=== PATIENT | female | born 1970 | race Caucasian/White ===

== ENCOUNTER 2019-12-31 07:52 | Outpatient (CLI) | payer OTHER, SELFPAY ==
--- NOTE | ~2019-12-31 | MM_ITS ---
EXAMINATION: MM screening jayna BI w aiyana HISTORY: Screening mammogram, family history of breast cancer in her mother. TECHNIQUE: Craniocaudal and mediolateral oblique 3-D tomosynthesis images were obtained and synthetic 2-D images were generated. CAD analysis was submitted and interpreted. COMPARISON: 12/26/2018, 12/14/1917, 12/13/2016 BREAST PARENCHYMAL COMPOSITION: There are scattered areas of fibroglandular density. FINDINGS: There is no evidence of suspicious mass, calcification, or architectural distortion to sugg est malignancy in either breast. There has been no suspicious interval change. IMPRESSION: 1. No mammographic evidence of malignancy. 2. Recommend routine screening mammography in one year. BI-RADS Category 1: Negative Reviewed, dictated and finalized at location A. WIRE FABRIC MACHINE OPERATOR
== END 2019-12-31 07:53 | disposition home or self-care (01) ==
LOC: CHSIMG 07:57
PROVIDERS: PCP Internal Medicine; Visit Provider Obstetrics & Gynecology
DX: Z12.31 Encounter for screening mammogram for malignant neoplasm of breast (principal)
CPT/HCPCS: 77063; 77067

== ENCOUNTER 2021-01-02 07:55 | Outpatient (CLI) | payer BC, SELFPAY ==
--- NOTE | ~2021-01-02 | MM_ITS ---
EXAMINATION: MM screening jayna BI w aiyana HISTORY: Screening mammogram TECHNIQUE: Craniocaudal and mediolateral oblique 3-D tomosynthesis images were obtained and synthetic 2-D images were generated. CAD analysis was submitted and interpreted. COMPARISON: December 31, 2019, December 26, 2018, November 20182017 bilateral digital screening mammog amrit examinations BREAST PARENCHYMAL COMPOSITION: There are scattered areas of fibroglandular density. FINDINGS: There is no evidence of suspicious mass, calcification, or architectural distortion to sugg est malignancy in either breast. There has been no suspicious interval change. IMPRESSION: 1. No mammographic evidence of malignancy. 2. Recommend routine screening mammography in one year. BI-RADS Category 1: Negative Reviewed, dictated and finalized at location A. TIC MACHINE TENDER PRODUCTION
== END 2021-01-02 07:56 | disposition home or self-care (01) ==
LOC: CHSIMG 08:00
PROVIDERS: PCP Internal Medicine; Visit Provider Obstetrics & Gynecology
DX: Z12.31 Encounter for screening mammogram for malignant neoplasm of breast (principal)
CPT/HCPCS: 77063; 77067

== ENCOUNTER 2021-01-03 15:03 | Outpatient (CLI) | payer BC, SELFPAY ==
--- NOTE | ~2021-01-03 | US_ITS ---
EXAMINATION: US venous doppler UE RT DATE: 01/03/2021 15:51 INDICATION: Swelling and prominent veins in the right upper limb TECHNIQUE: Grayscale images without and with compression and Doppler images of the right upper extrem ity veins were obtained. COMPARISON: None. FINDINGS: The right internal jugular vein, subclavian vein, axillary vein, brachial vein, basilic vein, cephali c vein, radial vein, and ulnar vein are patent. IMPRESSION: 1. Patent right upper extremity veins. No evidence of venous thrombosis. Reviewed, dictated and finalized at location A. STRIAL PIPEFITTER JOURNEYMAN
== END 2021-01-03 15:04 | disposition home or self-care (01) ==
LOC: CHSIMG 15:05
PROVIDERS: PCP Internal Medicine; Visit Provider Internal Medicine
DX: M79.89 Other specified soft tissue disorders (principal)
CPT/HCPCS: 93971

== ENCOUNTER 2021-01-06 08:30 | Outpatient (CLI) | payer BC, SELFPAY ==
--- NOTE | ~2021-01-06 | CT_ITS ---
EXAMINATION: CT diagnostic chest w con DATE: 01/06/2021 09:50 INDICATION: Superior vena cava obstruction TECHNIQUE: Transaxial computed tomographic images of the chest were obtained after the administration of 75 cc of Omnipaque 350 intravenous contrast. The dose-length product (DLP) was 174.55 mGy-cm. Ite rative reconstruction was used. COMPARISON: None FINDINGS: There is superior vena cava is patent. Streak artifact from dense SVC contrast limits evalu ation for partial intraluminal filling defects although none are definitely identified. There is mild dependent atelectasis. No focal airspace opacities are identified. There is no pleural effusion or p neumothorax. No pathologically enlarged thoracic lymph nodes are identified. The heart size is normal . IMPRESSION: 1. No evidence of superior vena cava obstruction. Reviewed, dictated and finalized at location A. NICAL WRITING LEAD/MGR
== END 2021-01-06 08:31 | disposition home or self-care (01) ==
LOC: CHSIMG 08:31
PROVIDERS: PCP Internal Medicine; Visit Provider Internal Medicine
DX: I87.1 Compression of vein (principal)
CPT/HCPCS: 71260; Q9967

== ENCOUNTER 2022-03-09 08:28 | Outpatient (CLI) | payer BC, SELFPAY ==
--- NOTE | ~2022-03-09 | MM_ITS ---
EXAMINATION: MM screening [facility] BI w aiyana HISTORY: Screening TECHNIQUE: Craniocaudal and mediolateral oblique 3-D tomosynthesis images were obtained and synthetic 2-D images were generated. CAD analysis was submitted and interpreted. COMPARISON: Comparison to multiple prior studies sequentially, with oldest reviewed study dated 10/26. BREAST PARENCHYMAL COMPOSITION: There are scattered areas of fibroglandular density. FINDINGS: There is no evidence of suspicious mass, calcification, or architectural distortion to sugg est malignancy in either breast. There has been no suspicious interval change. IMPRESSION: 1. No mammographic evidence of malignancy. 2. Recommend routine screening mammography in one year. BI-RADS Category 1: Negative Reviewed, dictated and finalized at location A.
== END 2022-03-09 08:29 | disposition home or self-care (01) ==
LOC: CHSIMG 08:30
PROVIDERS: PCP Internal Medicine; Visit Provider Obstetrics & Gynecology
DX: Z12.31 Encounter for screening mammogram for malignant neoplasm of breast (principal)
CPT/HCPCS: 77063; 77067

== ENCOUNTER 2023-03-11 07:51 | Outpatient (CLI) | payer BC, SELFPAY ==
--- NOTE | ~2023-03-11 | MM_ITS ---
EXAMINATION: MM screening jayna BI w aiyana HISTORY: Screening mammogram TECHNIQUE: Craniocaudal and mediolateral oblique 3-D tomosynthesis images were obtained and synthetic 2-D images were generated. CAD analysis was submitted and interpreted. COMPARISON: March 09, 2022, January 02, 2021, December 31, 2019 bilateral screening mammogram examinat ions BREAST PARENCHYMAL COMPOSITION: There are scattered areas of fibroglandular density. FINDINGS: There is no evidence of suspicious mass, calcification, or architectural distortion to sugg est malignancy in either breast. There has been no suspicious interval change. IMPRESSION: 1. No mammographic evidence of malignancy. 2. Recommend routine screening mammography in one year. BI-RADS Category 1: Negative Reviewed, dictated and finalized at location B.
== END 2023-03-11 07:52 | disposition home or self-care (01) ==
LOC: CHSIMG 07:53
PROVIDERS: PCP Internal Medicine; Visit Provider Obstetrics & Gynecology
DX: Z12.31 Encounter for screening mammogram for malignant neoplasm of breast (principal)
CPT/HCPCS: 77063; 77067

== ENCOUNTER 2024-03-16 07:52 | Outpatient (CLI) | payer OTHER, SELFPAY ==
--- NOTE | ~2024-03-16 | MM_ITS ---
EXAMINATION: MM screening jayna BI w aiyana HISTORY: Screening mammogram TECHNIQUE: Craniocaudal and mediolateral oblique 3-D tomosynthesis images were obtained and synthetic 2-D images were generated. CAD analysis was submitted and interpreted. COMPARISON: March 11, 2023, March 09, 2022, December 2020 bilateral screening mammogram examinations BREAST PARENCHYMAL COMPOSITION: There are scattered areas of fibroglandular density. FINDINGS: There is no evidence of suspicious mass, calcification, or architectural distortion to sugg est malignancy in either breast. There has been no suspicious interval change. IMPRESSION: 1. No mammographic evidence of malignancy. 2. Recommend routine screening mammography in one year. BI-RADS Category 1: Negative Reviewed, dictated and finalized at location A.
== END 2024-03-16 07:53 | disposition home or self-care (01) ==
LOC: CHSIMG 07:54
PROVIDERS: PCP Internal Medicine; Visit Provider Obstetrics & Gynecology
DX: Z12.31 Encounter for screening mammogram for malignant neoplasm of breast (principal)
CPT/HCPCS: 77063; 77067

== ENCOUNTER 2025-01-05 14:18 | Outpatient (RCR) | payer OTHER, SELFPAY ==
[2025-01-05 14:21] VITALS: BMI 29.8
== END 2025-03-22 09:30 | disposition home or self-care (01) ==
LOC: ANHDMC 14:18
PROVIDERS: PCP Internal Medicine; Visit Provider Internal Medicine
DX: E78.5 Hyperlipidemia, unspecified (principal); E66.9 Obesity, unspecified; Z68.30 Body mass index [BMI] 30.0-30.9, adult; Z71.3 Dietary counseling and surveillance
CPT/HCPCS: 97802

== ENCOUNTER 2025-04-07 08:12 | Outpatient (CLI) | payer OTHER, SELFPAY ==
--- NOTE | ~2025-04-07 | MM_ITS ---
EXAMINATION: MM screening jayna BI w aiyana HISTORY: Screening TECHNIQUE: Craniocaudal and mediolateral oblique 3-D tomosynthesis images were obtained and synthetic 2-D images were generated. CAD analysis was submitted and interpreted. COMPARISON: Comparison to multiple prior studies sequentially, with oldest reviewed study dated 11/2018. BREAST PARENCHYMAL COMPOSITION: Not dense: There are scattered areas of fibroglandular density. FINDINGS: There is no evidence of suspicious mass, calcification, or architectural distortion to sugg est malignancy in either breast. There has been no suspicious interval change. IMPRESSION: 1. No mammographic evidence of malignancy. 2. Recommend routine screening mammography in one year. BI-RADS Category 1: Negative Reviewed, dictated and finalized at location A.
--- OUTSIDE RECORDS SUMMARY | 2025-04-07 08:19 | XMS_ITS | Encounter Summary ---
Author Organization [facility] Healthcare Address [address] [place] [address] Care Team Providers Care Agile Scrum Coach Name Role Phone Nicko Sykes MD Primary Care Provider [phone] Encounter Details Date Type Department Care Team (Late st Contact Info) Description 03/23/2025 Results Follow-Up [facility] Diabetes Endocrine Care at [address] [phone] Melissa Jimenez, [address] [place] [address] [address] [place] [address] Social History Tobacco Use Types Packs/Day Years Used Date Smoking Tobacco: Never Smokeless Tobacco: Never AUDIT-C Answer Date Recorded Q1: How often do you have a drink containing alcohol? Monthly or less 12/09/2024 Q2: How many drinks containi ng alcohol do you have on a typical day when you are drinking? Patient does not drink Frequency of Binge Drinking Not on file 11/25 Comments Unknown Sex and Gender Information Value Date Recorded Sex Assigned at Not on file Legal Sex Female 3:17 AM AIR CONDITIONING SERVICE TECHNICIAN Gender Identity Female 12/06/2024 5:38 PM AIR CONDITIONING SERVICE TECHNICIAN Sexual Orientation Straight 12/06/2024 5: 38 PM AIR CONDITIONING SERVICE TECHNICIAN documented as of this encounter Plan of Treatment Not on file documented as of this encounter Visit Diagnoses Not on filedocumented in this encounter Care Teams Agile Scrum Coach Relationship Specialty Start Date End Date Nicko Sykes MD PCP - General Internal Medicine 01/18/21 documented as of this encounter
--- OUTSIDE RECORDS SUMMARY | 2025-04-07 08:19 | XMS_ITS | Clinical Summary ---
Author Organization [facility] Address [address] [place] [address] Care Team Providers Care Revenue Cycle Analyst Name Role Phone Nicko Sykes MD Primary Care Provider [phone] Allergies Active Allergy Reactions Criticality Noted Date Comments Cefaclor Hives High 03/29/2021 Egg Swelling Medium 03/29/2021 Penicillins Hives High 03/29/2021 Medications multivitamin-i geno-folic acid 18-400 mg-mcg tablet Take 1 tablet by mouth daily Active cholecalcifero l (VITAMIN D-3) 25 mcg (1,000 unit) tablet Take 1 tablet (1,000 Units total) by mouth daily Active levothyroxine (SYNTHROID) 88 mcg tablet levothyroxine 88 mcg tablet TAKE 1 TABLET BY MOUTH ONCE DAILY 3 Active verapamil ER (VERELAN) 120 mg 24 hr capsule 0 Active prednisoLONE acetate (PRED FORTE) 1 % ophthalmic suspension Administer 1 drop into the left eye every 2 (two) hours while awake for 7 days, THEN 1 drop 6 (six) times a day for 7 days, THEN 1 drop 4 (four) times a day for 7 days, THEN 1 drop 3 (three) times a day. 15 mL 2 5 08/14/20 25 Active Active Problems Problem Noted Date Diagnosed Date Recurrent acute anterior uveitis 01/28/2025 Overview (01/28/2025): Diagnosis: Recurrent anterior uveitis both eyes Complications: None Last active: Unk OD ?2020, 01/25/2025 OS Systemic associations: None Labs: Positive: None Negative/normal: CXR and HLA-B27 Care Team: Other notes: Assessment & Plan (03/08/2025 11:05 AM CDT): -- Recurrent uveitis with initial presentation in the right eye in December 2020 and subsequent flares in the left eye starting August 2022. Approximately four flares since 2020, with the most recent presenting as mild inflammation in the left eye. Treated with prednisolone eye drops during flares, off drops since May 2024. -- Current exam shows trace cell in the left eye with mild inflammation, no significant findings in the right eye. -- Differential diagnosis includes systemic diseases; workup including chest x- ray, syphilis test, and HLA-B27 were negative, suggesting isolated ocular involvement. Discussed risks of steroid eye drops and goal to eliminate inflammation to prevent recurrence and assess need for non-steroid medications. -- Syphilis repeat testing negative -- Last saw Dr. Blake on 01/28/25. At that time started PF taper of every 2 hours when awake for 1 week, then 6 times a day for 1 week, then 4 times a day for 1 week, then 3 times a day OU -- Today without AC cell. Limited view to vitreous but without apparent vit cell either. PLAN -- Continue to taper by 1 drop each week until off. -- F/u with Dr. Blake as scheduled on 04/26/25 Assessment & Plan (01/28/2025 7:10 PM SOLE SEWER HAND): Recurrent uveitis with initial presentation in the right eye in December 2020 and subsequent flares in the left eye starting August 2022. Approximately four flares since 2020, with the most recent presenting as mild inflammation in the left eye. Treated with prednisolone eye drops during flares, off drops since May 2024. Current exam shows trace cell in the left eye with mild inflammation, no significant findings in the right eye. Differential diagnosis includes systemic diseases; workup including chest x-ray, syphilis test, and HLA-B27 were negative, suggesting isolated ocular involvement. Discussed risks of steroid eye drops and goal to eliminate inflammation to prevent recurrence and assess need for non-steroid medications. - Order syphilis test (preferably at a [facility] lab) - Prescribe prednisolone eye drops for the left eye: every 2 hours when awake for 1 week, then 6 times a day for 1 week, then 4 times a day for 1 week, then 3 times a day - Next follow up in [facility]. If there is no inflammation continue to taper by 1 drop each week until off. 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 Observe. Increased body mass index (BMI) 01/07/2014 Abnormal liver function tests 01/07/2014 Thyroid disease Overview (03/15/2022): Jacey's Assessment & Plan (03/15/2022 1:39 PM CDT): History of Jacey's thyroid disease. Recent injection of eye, likely related to contact lens use. No evidence of thyroid eye disease on examination to day. We have discussed signs and symptoms of thyroid eye disease and have instructed her to return as needed if she identifies any symptoms in the future. 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 (Primary Dx); Jacey's disease 03/08/2025 9:30 AM CDT Office Visit [facility] [address] [place] [address] [place] [address] Gilda Yañez MD Recurrent acute anterior uveitis (Primary Dx) 01/29/2025 Results Follow-Up [facility] [address] [facility] 6th [place] [phone] Brendan Blake MD 01/28/2025 1:15 PM SOLE SEWER HAND Lab [facility] Outpatient Lab at [place] [address] [facility] [address] [place] [phone] Glaucomatocyclitic crises (Primary Dx) 01/28/2025 1:10 PM SOLE SEWER HAND - 01/28/2025 11:59 PM SOLE SEWER HAND Hospital Encounter [facility] [address] [place] [address] Uveitis Discharge Disposition: Discharge to home or self care 01/25/2025 2:15 PM SOLE SEWER HAND Office Visit [facility] [address] [facility] 1st [place] [phone] Brendan Blake MD Recurrent acute anterior uveitis (Primary Dx); Uveitis; Cataract in inflammatory disorder, bilateral from Last 3 Months Surgical History Surgery Date Site/Laterality Comments TONSILLECTOMY AND ADENOIDECTOMY 11/25/1976 - 11/24/1977 Medical History Medical History Date Comments Hypertension Seasonal allergies Thyroid disease Jacey's Family History Medical History Relation Name Comments GI problems Child 1 Family history of gastroesophageal reflux disease - (Added by TW Conv) Asthma Child 2 Family history of asthma - (Added by TW Conv) Allergies Child 3 Multiple allerg ies - (Added by TW Conv) Cataracts Father Gout Father Family history of gout - (Added by TW Conv) Hypertension Father Family history of hypertension - (Added by TW Conv) Cataracts Mother Diabetes Mother Family history of diabetes mellitus - (Added by TW Conv) GI problems Mother Family history of gastroesophageal reflux disease - (Added by TW Conv) Hypertension Mother Family history of hypertension - (Added by TW Conv) Glaucoma Paternal Grandmother Depression Sister Family history of depression - (Added by TW Conv) Macular degeneration Neg Hx Relation Name Status Comments Child 1 Child 2 Child 3 Father Mother Paternal Grandmother Sister Social History Tobacco Use Types Packs/Day Years Used Date Smoking Tobacco: Never Smokeless Tobacco: Never Tobacco Cessation:Counseling Given: Not Answered AUDIT-C Answer Date Recorded Q1: How often [...] on file Legal Sex Female 3:17 AM SOLE SEWER HAND Gender Identity Female 12/06/2024 5:38 PM SOLE SEWER HAND Sexual Orientation Straight 12/06/2024 5: 38 PM SOLE SEWER HAND Obstetrics History Last Filed Vital Signs Vital Sign Reading Time Taken Comments Blood Pressure 104/70 03/22/2025 8:24 AM CDT Pulse 69 03/22/2025 8:24 AM CDT Temperature 36.8 C (98.2 F) 12/09/2024 8:04 AM SOLE SEWER HAND Respiratory Rate - - Oxygen Saturation 98% 12/09/2024 8:04 AM SOLE SEWER HAND Inhaled Oxygen Concentration - - Weight 74.5 kg (164 lb 3.2 oz) 03/22/2025 8:24 A M CDT Height 160 cm (5' 3 ) 03/22/2025 8:24 AM CDT Body Mass Index 29.09 03/22/2025 8:24 AM CDT Plan of Treatment Health Maintenance Due Date Last Done Comments Breast Cancer Screening-Mammogram 1970 Cervical Cancer Screening 1970 Colon Cancer Screening-Colonoscopy 1970 Depression Screening 1970 Regular Well Visit/Exam 18-64 1988 Covid-19 Vaccine (2 - 2023-2 5 season) 2024 05/26/2021 Influenza Vaccine (Season Ended) 2025 DTaP/Tdap/Td Vaccine (3 - Td or Tdap) 12/27/2030 12/27/2020, 08/09/2008 Zoster Vaccine Completed 04/14/2021, 12/27/2020 Hepatitis B Screening Completed 12/09/2024 Hepatitis C Screening Completed 12/09/2024 , 01/07/2014 Pneumococcal vaccine <65 Aged Out No longer eligible based on patient's age to complete this topic Procedures Procedure Name Priority Date/Time Associated Diagnosis Comments THYROID FUNCTION [place] Routine 03/22/2025 8:50 AM CDT 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 TREPONEMAL IGG/IGM Routine 01/28/2025 1: 10 PM SOLE SEWER HAND Uveitis HEPATITIS C ANTIBODY Routine 12/09/2024 9:37 AM SOLE SEWER HAND High risk medication use from Last 3 Months or Most Recently Relevant to Health Maintenance Results * Thyroid Function [place] (03/22/2025 8:50 AM CDT) Pathologist [facility] TSH 1.23 0.30 - 4.20 mcIUnit/mL Comment:Testing performed by : [facility], [address] [place] [address]., [id number] Blood 03/22/2025 8:50 AM CDT 03/22/2025 4:09 PM CDT Melissa Jimenez DO LAB BLOOD ORDERABLES Final Result Performing Organization Address [facility] Co de Phone Number ROMRYANNE [address] [place] [address] * Treponemal IgG/IgM Blood (01/28/2025 1:10 PM SOLE SEWER HAND) Pathologist [facility] Treponemal IgG/IgM Nonreactive Nonreactive Comment: Interpretive Data: If test is reported as EQUIVOCAL, a new sample should be drawn in two weeks for testing. Current interpretive data was last revised on 2019. Blood 01/28/2025 1:10 PM SOLE SEWER HAND 01/28/2025 9:17 PM SOLE SEWER HAND Brendan Blake MD LAB MICROBIOLOGY - GENERAL ORDERABLES Final Result Performing Organization Address [facility] Co de Phone Number ROMRYANNE [address] [place] [address] * Hepatitis C antibody Blood (12/09/2024 9:37 AM SOLE SEWER HAND) Pathologist [facility] Hep C Ab Nonreactive Nonreactive Comment: Interpretive Data Nonreactive: Antibodies to HCV not detected. Does NOT exclude the possibility of recent exposure to HCV. Equivocal: Equivocal for HCV antibodies. Supplemental molecular testing will be automatically performed to determine infection status in accordance with current CDC screening recommendations. Reactive: Positive for HCV antibodies. This may represent current or past HCV infection. Supplemental molecular testing will be automatically performed to determine current infection status in accordance with current CDC screening recommendations. Interpretive data was last revised on 2020. Testing performed by: [facility], [address] [place] [address], [place]., [address] Blood 12/09/2024 9:37 AM SOLE SEWER HAND 12/09/2024 1:52 PM SOLE SEWER HAND Sharla Walters NP LAB MICROBIOLOGY - NERAL ORDERABLES Final Result [facility] [id number] [facility]. [place] [address] from Last 3 Months or Most Recently Relevant to Health Maintenance Insurance [employer] Care Teams Revenue Cycle Analyst Relationship Specialty Start Date End Date Nicko Sykes MD PCP - General Internal Medicine 01/18/21
--- OUTSIDE RECORDS SUMMARY | 2025-04-07 08:20 | XMS_ITS | Referral Summary ---
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); Jacey's disease 03/08/2025 9:30 AM CDT Office Visit [facility] [address] [place] [phone] Gilda Yañez MD Recurrent acute anterior uveitis (Primary Dx) 01/29/2025 Results Follow-Up [facility] [address] [place] [address] Outpatient Health [address] [place] [phone] Brendan Blake MD 01/28/2025 1:10 PM CLERICAL PRODUCTION WORKER - 01/28/2025 11:59 PM CLERICAL PRODUCTION WORKER Hospital Encounter [facility] [address] [place] [address] Uveitis Discharge Disposition: Discharge to home or self care 01/28/2025 1:15 PM CLERICAL PRODUCTION WORKER Lab [facility] Outpatient Lab at [address] [place] [phone] Glaucomatocyclitic crises (Primary Dx) 01/25/2025 2:15 PM CLERICAL PRODUCTION WORKER Office Visit [facility] [address] [place] [address] [address] [place] [address] Brendan Blake MD Recurrent acute anterior uveitis (Primary Dx); Uveitis; 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 15 mL 2 08/14/20 25 Active Active Problems Problem Noted [...] 04/26/25 Assessment & Plan (01/28/2025 7:10 PM CLERICAL PRODUCTION WORKER): Recurrent uveitis with initial presentation in the [...] - Order syphilis test (preferably at a [facility] lab) - Prescribe prednisolone eye drops [...] 04/2025 Assessment & Plan (01/28/2025 7:11 PM CLERICAL PRODUCTION WORKER): Not significant at this point. Observe. Increased [...] she identifies any symptoms in the future. Social History Tobacco Use Types Packs/Day Years [...] on file Legal Sex Female 3:17 AM CLERICAL PRODUCTION WORKER Gender Identity Female 12/06/2024 5:38 PM CLERICAL PRODUCTION WORKER Sexual Orientation Straight 12/06/2024 5: 38 PM CLERICAL PRODUCTION WORKER Last Filed Vital Signs Vital Sign Reading Time Taken Comments Blood Pressure 104/70 03/22/2025 8:24 AM CDT Pulse 69 03/22/2025 8:24 AM CDT Temperature 36.8 C (98.2 F) 12/09/2024 8:04 AM CLERICAL PRODUCTION WORKER Respiratory Rate - - Oxygen Saturation 98% 12/09/2024 8:04 AM CLERICAL PRODUCTION WORKER Inhaled Oxygen Concentration - - Weight 74.5 kg (164 lb 3.2 oz) 03/22/2025 8:24 A M CDT Height 160 cm (5' 3 ) 03/22/2025 8:24 AM CDT Body Mass Index 29.09 03/22/2025 8:24 AM CDT Plan of Treatment Not on file Procedures Procedure Name Priority Date/Time Associated Diagnosis Comments THYROID FUNCTION CASCADE Routine 03/22/2025 8:50 AM CDT 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 TREPONEMAL IGG/IGM Routine 01/28/2025 1: 10 PM CLERICAL PRODUCTION WORKER Uveitis HEPATITIS C ANTIBODY Routine 12/09/2024 9:37 AM CLERICAL PRODUCTION WORKER High risk medication use from Last 3 Months or Most Recently Relevant to Health Maintenance Results * Thyroid Function Clark (03/22/2025 8:50 AM CDT) TSH 1.23 0.30 - 4.20 mcIUnit/mL Comment:Testing performed by : [facility], [address] [place] [address]., [id number] Blood 03/22/2025 8:50 AM CDT 03/22/2025 4:09 PM CDT us Melissa Jimenez DO LAB BLOOD ORDERABLES Final Result Performing Organization Address [facility] Phone Number [address] Department of Laboratories [place] [phone] * Treponemal IgG/IgM Blood (01/28/2025 1:10 PM CLERICAL PRODUCTION WORKER) Treponemal IgG/IgM Nonreactive Nonreactive Comment: Interpretive Data: If test is reported as EQUIVOCAL, a new sample should be drawn in two weeks for testing. Current interpretive data was last revised on 2019. Blood 01/28/2025 1:10 PM CLERICAL PRODUCTION WORKER 01/28/2025 9:17 PM CLERICAL PRODUCTION WORKER us Brendan Blake MD LAB MICROBIOLOGY - GENERAL ORDERABLES Final Result Performing Organization Address City/[facility]/[place] [address] [address] [place] [address] * Hepatitis C antibody Blood (12/09/2024 9:37 AM CLERICAL PRODUCTION WORKER) Hep C Ab Nonreactive Nonreactive Comment: Interpretive [...] last revised on 2020. Testing performed by: [facility], [address] [place] [address]., [id number] Blood 12/09/2024 9:37 AM CLERICAL PRODUCTION WORKER 12/09/2024 1:52 PM CLERICAL PRODUCTION WORKER Sharla Walters NP LAB MICROBIOLOGY - NERAL ORDERABLES Final Result Performing Organization Address City/[facility] Co de Phone Number [place] [facility] [address] [facility]. Department [place] [address] from Last 3 Months or Most Recently Relevant to Health Maintenance Insurance [facility] [place] [id number] [employer] Care Teams Neurosurgical Nurse Relationship Specialty Start Date End Date Nicko Sykes MD PCP - General Internal Medicine 01/18/21
--- OUTSIDE RECORDS SUMMARY | 2025-04-07 08:20 | XMS_ITS | Clinical Summary ---
Author Organization [facility] Address [facility] [place] [address] Care Team Providers Care Track Liner Operator Name Role Phone Nicko Sykes MD Primary Care Provider [phone] Allergies Active Allergy Reactions Criticality Noted Date Comments Cefaclor Hives High 03/29/2021 Egg-Derived Products Throat swelling 03/29/2021 Penicillins Hives High 03/29/2021 Medications verapamil 120 MG tablet Take 120 mg by mouth daily. Active levothyroxine 88 MCG tablet Take 88 mcg by mouth every morning. Active loratadine 10 MG tablet Take 10 mg by mouth daily. Active vitamin D3, cholecalciferol , 1000 UNIT Tab tablet Take 1 tablet by mouth daily. Active Multiple Vitamin (MULTIVITAMIN ADULT OR) Take 1 tablet by mouth daily. Active fluticasone propionate 50 MCG/ACT nasal spray fluticasone propionate 50 mcg/actuation nasal spray,suspension Active Social History Tobacco Use Types Packs/Day Years Used Date Smoking Tobacco: Never Smokeless Tobacco: Never Alcohol Use Standard Drinks/Week Comments Yes 0 (1 standard drink = 0.6 oz pur e alcohol) Comments Unknown Sex and Gender Information Value Date Recorded Sex Assigned at Not on file Legal Sex Female 10:11 AM CDT Gender Identity Not on file Sexual Orientation Not on file Last Filed Vital Signs Vital Sign Reading Time Taken Comments Blood Pressure 127/68 04/05/2021 11:10 AM CDT Pulse 61 04/05/2021 11:10 AM CDT Temperature 36.4 C (97.6 F) 04/05/2021 11:10 AM CDT Respiratory Rate 18 04/05/2021 11:10 AM CDT Oxygen Saturation 99% 04/05/2021 11:10 AM CDT Inhaled Oxygen Concentration - - Weight 74.8 kg (165 lb) 03/29/2021 11:47 AM CDT Height 162.6 cm (5' 4 ) 03/29/2021 11:47 AM CDT Body Mass Index 28.32 03/29/2021 11:47 AM CDT Plan of Treatment Health Maintenance Due Date Last Done Comments Cervical Cancer Screening Pa p Smear (Age 30 to 64) Every 3 Years 1970 Annual Physical 1973 Hepatitis C 1988 DTaP, Tdap and Td Vaccines ( 1 - Tdap) 1989 Hepatitis B Vaccines (1 of 3 - 19+ 3-dose series) 1989 Cervical Cancer Screening Pa p with HPV Testing (Age 30 to 64) Every 5 Years 2000 Cervical Cancer Screening with HPV 2000 Mammogram Screening 2010 Pneumococcal Vaccine: 50+ Ye ars (1 of 1 - PCV) 2020 Zoster Vaccines (2 of 2) 02/21/2021 12/27/2020 COVID-19 Vaccine (1 - 2023-2 5 season) 2024 Colorectal Cancer Screening Colonoscopy (10 Years) 04/05/2031 04/05/2021 Meningococcal B Vaccine Aged Out No l onger eligible based on patient's age to complete this topic Meningococcal Vaccine Aged Out No chino marta eligible based on patient's age to complete this topic RSV Immunizations Under 20 Months Aged Out No longer eligible based on patient's age to complete this topic Insurance [facility] Care Teams Track Liner Operator Relationship Specialty Start Date End Date Nicko Sykes MD [address] [place] [phone] PCP - General INTERNAL MEDICINE 04/02/21
--- OUTSIDE RECORDS SUMMARY | 2025-04-07 08:20 | XMS_ITS | Clinical Summary ---
Author Organization [facility] Address [address] [place] [address] Phone Care Team Providers Care Laserist Name Role Phone Nicko Sykes MD Primary Care Provider [phone] Allergies Active Allergy Reactions Criticality Noted Date Comments Cefaclor Hives High 03/29/2021 Egg-Derived Products Swelling,Other (see Comments) Medium 03/29/2021 Penicillins Hives High 03/29/2021 Medications levothyroxine (SYNTHROID) 88 MCG Tablet levothyroxine 88 mcg tablet TAKE 1 TABLET BY MOUTH ONCE DAILY 3 Active verapamil (CALAN,ISOPTIN ) 120 MG Tablet Take 120 mg by mouth. Active Vitamin D3 1000 UNIT Tablet Take 1 Tablet by mouth daily. Active Active Problems No known active problems Social History Tobacco Use Types Packs/Day Years Used Date Smoking Tobacco: Never Smokeless Tobacco: Never Tobacco Cessation:Counseling Given: Not Answered Comments No Sex and Gender Information Value Date Recorded Sex Assigned at Not on file Legal Sex Female 10:38 PM CDT Gender Identity Not on file Sexual Orientation Not on file Last Filed Vital Signs Vital Sign Reading Time Taken Comments Blood Pressure 120/64 09/03/2023 5:37 PM CDT Pulse 74 09/03/2023 5:37 PM CDT Temperature 37.2 C (99 F) 09/03/2023 5:37 PM CDT Respiratory Rate 16 09/03/2023 5:37 PM CDT Oxygen Saturation 96% 09/03/2023 5:37 PM CDT Inhaled Oxygen Concentration - - Weight - - Height - - Body Mass Index - - Plan of Treatment Health Maintenance Due Date Last Done Comments Hepatitis C Virus (HCV) Screening 1970 Mammogram 1970 Hepatitis B Immunization (1 of 3 - 19+ 3-dose series) 1989 Pap Smear 1991 Cervical Cancer Screening (CCS) 2000 HPV/Cotest 2000 Colonoscopy 2015 Colorectal Cancer Screening 2015 Cologuard 2020 Immunochemical Fecal Occult Blood 2020 Pneumococcal Immunization (5 0+ years) (1 of 1 - PCV) 2020 Influenza Immunization (#1) 2024 SARS-COV-2 Immunization (2 - 2023- season) 2024 05/26/2021 Respiratory Syncytial Virus (RSV) Immunization (Adult) (1 - 1-dose 75+ series) 2045 DTaP/Tdap/Td Immunization Discontinued 2020, 08/09/2008 TdaP Immunization Completed 12/27/2020, 08/09/2008 Zoster Immunization Completed 04/14/2021, 12/27/2020 Meningococcal Immunization (ACWY) Aged Out No longer eligible based on patient's age to complete this topic Rotavirus Immunization Aged Out No lo nger eligible based on patient's age to complete this topic Insurance [employer] Care Teams Laserist Relationship Specialty Start Date End Date Nicko Sykes MD [address] [place] [address] PCP - General Internal Medicine 09/03/23
== END 2025-04-07 08:13 | disposition home or self-care (01) ==
LOC: CHSIMG 08:13
PROVIDERS: PCP Internal Medicine; Visit Provider Obstetrics & Gynecology
DX: Z12.31 Encounter for screening mammogram for malignant neoplasm of breast (principal)
CPT/HCPCS: 77063; 77067